=== PATIENT | female | born 1960 | race Caucasian/White ===

== ENCOUNTER 2018-11-24 20:48 | Emergency (ER) | payer SELFPAY ==
[~2018-11-24] VITALS: Ht 152.4 cm; Wt 54.5 kg
[2018-11-24 21:02] VITALS: BP 143/77
== END 2018-11-25 00:30 | disposition left against medical advice (07) ==
LOC: EMS 20:49
DX: M54.5 Low back pain (principal); Z53.21 Procedure and treatment not carried out due to patient leaving prior to being seen by health care provider